=== PATIENT | male | born 1955 | race Caucasian/White ===

== ENCOUNTER → 2018-04-28 16:37 | Outpatient (CLI) | payer BC, SELFPAY ==
--- NOTE | 2018-04-28 | XR_ITS ---
EXAM: XR cervical spine 5V HISTORY: Neck pain and shoulder pain ORDERING PHYSICIAN: Hair Parish PATIENT AGE: 62 years COMPARISON: None FINDINGS: There is normal alignment. There is degenerative disc disease at C3-C4, C4-C5, C5-C6, and C6-C7. Facet and uncovertebral hypertrophy is present with moderate left-sided foraminal narrowing at C3-C4, C4-C5 and C5-C6. Facet hypertrophic changes are present from C2 to C7 with prominent facet hypertrophic change on the right at C2-C3. No fracture or dislocation. No lytic or blastic change. IMPRESSION: Multilevel cervical spondylosis with degenerative disc disease along with facet and uncovertebral arthrosis with foraminal narrowing as described above
== END ==
PROVIDERS: PCP Internal Medicine; Visit Provider Internal Medicine
DX: M54.2 Cervicalgia (principal); M25.512 Pain in left shoulder
CPT/HCPCS: 72050

== ENCOUNTER → 2018-07-07 13:11 | Outpatient (POV) | payer BC, SELFPAY | PROVIDERS: PCP Internal Medicine; Visit Provider Specialist | DX: M79.602 Pain in left arm (principal); R20.2 Paresthesia of skin; R20.0 Anesthesia of skin | CPT/HCPCS: 95886; 95908 ==

== ENCOUNTER 2018-07-14 09:00 | Outpatient (CLI) | payer SELFPAY | END 2018-07-14 11:11 | disposition home or self-care (01) | LOC: UTC.OUT 09:01 | PROVIDERS: PCP Internal Medicine; Visit Provider Nurse Practitioner Family | DX: Z02.4 Encounter for examination for driving license (principal) ==

== ENCOUNTER → 2019-05-19 07:16 | Outpatient (CLI) | payer BC, SELFPAY ==
[2019-05-19 08:13] LABS: Basophils # 0.1 K/mm3 (0-0.2); Eosinophils # 0.6 K/mm3 (0.0-0.4); Eosinophils % 5.8 % (0.1-12.0); Hematocrit 47.7 % (42.0-52.0); Hemoglobin 14.8 g/dL (14.1-18.0); Lymphocytes # 2.1 K/mm3 (0.7-4.5); Lymphocytes % 20.8 % (10-50); Mean Corpuscular Hemoglobin 30.6 pg (27.0-31.2); Mean Corpuscular Volume 98.4 fl (80-94); Mean Platelet Volume 9.4 fl (7.4-10.4); Monocytes % 9.6 % (1.7-9.3); Neutrophils # 6.3 K/mm3 (1.8-7.8); Neutrophils % 62.7 % (37.0-80.0); Platelet Count 322 K/mm3 (142-424); Red Blood Count 4.85 M/mm3 (4.60-6.20); Red Cell Distribution Width 13.5 % (11.5-17.5)
[2019-05-19 09:32] LABS: Alanine Aminotransferase 27 U/L (12-78); Albumin Level 3.9 gm/dL (3.4-5.0); Alkaline Phosphatase 69 U/L (46-116); Anion Gap 13.5 mEq/L (5-15); Aspartate Amino Transferase 18 U/L (15-37); Bilirubin,Total 0.4 mg/dL (0.2-1.0); Blood Urea Nitrogen 20 mg/dL (7-18); Calcium 9.7 mg/dL (8.5-10.1); Carbon Dioxide 28 mmol/L (21.0-32.0); Chloride 103 mmol/L (98-107); Chol/HDL Ratio 4.8 (1-3.5); Cholesterol 171 mg/dL (140-200); Estimated Glomerular Filt Rate 76 ml/min (>60); GFR (African American) 92 ML/MIN (>60); Globulin 3.9 gm/dl (1.3-3.2); Glucose 101 mg/dL (74-106); HDL Cholesterol 36 mg/dL (27-67); LDL Cholesterol 118 mg/dL (0-130); Potassium 4.5 mmoL/L (3.5-5.1); Prostate Specific Ag, Diagnost 0.79 ng/mL (0.0-4.0); Sodium 140 mmol/L (136-145); Total Protein,Serum 7.8 gm/dL (6.4-8.2); Triglycerides 85 mg/dL (30-200); VLDL Cholesterol 17 mg/dL (0-40)
== END ==
PROVIDERS: Visit Provider Internal Medicine
DX: I10 Essential (primary) hypertension (principal); E78.5 Hyperlipidemia, unspecified; M54.5 Low back pain; R39.12 Poor urinary stream
CPT/HCPCS: 36415; 80053; 80061; 84153; 85025

== ENCOUNTER → 2020-04-11 11:35 | Outpatient (CLI) | payer BC, SELFPAY ==
--- NOTE | 2020-04-11 11:49 | ECG_ITS ---
APPROVED REPORT Exam: Resting ECG HR:54 bpm ECG Measurements Heart Rate 54 AXES MT 190 P 52 QRSd 120 QRS -31 QT 442 T -5 QTc 419 <Conclusion> Sinus bradycardia Left axis deviation Right bundle branch block Abnormal ECG Electronically signed by : Hair Parish, 04/11/2020 12:06:55
== END ==
PROVIDERS: PCP Internal Medicine; Visit Provider Internal Medicine
DX: R07.89 Other chest pain (principal); I10 Essential (primary) hypertension
CPT/HCPCS: 93005

== ENCOUNTER → 2020-04-12 08:19 | Outpatient (CLI) | payer BC, SELFPAY ==
[2020-04-12 08:52] LABS: Basophils # 0.1 K/mm3 (0-0.2); Basophils % 1.1 % (0.1-2.0); Eosinophils # 0.8 K/mm3 (0.0-0.4); Eosinophils % 7.4 % (0.1-12.0); Hemoglobin 15.2 g/dL (14.1-18.0); Lymphocytes # 2.2 K/mm3 (0.7-4.5); Lymphocytes % 21.5 % (10-50); Mean Corpuscular HGB Conc 34.6 g/dL (31.8-35.4); Mean Corpuscular Hemoglobin 32.7 pg (27.0-31.2); Mean Corpuscular Volume 94.4 fl (80-94); Mean Platelet Volume 8.8 fl (7.4-10.4); Monocytes # 0.9 K/mm3 (0.1-1.0); Monocytes % 8.5 % (1.7-9.3); Neutrophils # 6.3 K/mm3 (1.8-7.8); Neutrophils % 61.5 % (37.0-80.0); Platelet Count 327 K/mm3 (142-424); Red Blood Count 4.66 M/mm3 (4.60-6.20); Red Cell Distribution Width 12.7 % (11.5-17.5); White Blood Count 10.2 K/mm3 (4.8-10.8)
[2020-04-12 10:13] LABS: Alanine Aminotransferase 30 U/L (12-78); Albumin Level 4.3 g/dl (3.5-5.0); Albumin/Globulin Ratio 1.3 (1.1-1.8); Alkaline Phosphatase 56 U/L (38-126); Anion Gap 13.3 mEq/L (5-15); Aspartate Amino Transferase 35 U/L (17-59); Bilirubin,Total 0.6 mg/dl (0.2-1.3); Blood Urea Nitrogen 21 mg/dl (9-20); Calcium 9.8 mg/dl (8.4-10.2); Carbon Dioxide 32 mmol/L (22.0-30.0); Chloride 98 mmol/L (98-107); Cholesterol 167 mg/dl (140-200); Estimated Glomerular Filt Rate 68 ml/min (>60); GFR (African American) 82 ML/MIN (>60); Globulin 3.2 g/dL (1.3-3.2); Glucose 99 mg/dl (74-100); HDL Cholesterol 28 mg/dl (40-60); Potassium 4.3 mmoL/L (3.5-5.1); Sodium 139 mmol/L (136-145); Total Protein,Serum 7.5 g/dl (6.3-8.2); Triglycerides 112 mg/dl (30-150); VLDL Cholesterol 22 mg/dL (0-40)
[2020-04-12 10:24] LABS: Direct LDL Cholesterol 115.23 mg/dL (100-129)
[2020-04-12 10:44] LABS: Prostate Specific Ag, Diagnost 0.795 ng/ml (0.0-4.0)
== END ==
PROVIDERS: Visit Provider Internal Medicine
DX: R07.9 Chest pain, unspecified (principal); I10 Essential (primary) hypertension; E78.5 Hyperlipidemia, unspecified; N40.1 Benign prostatic hyperplasia with lower urinary tract symptoms
CPT/HCPCS: 36415; 80053; 80061; 84153; 85025

== ENCOUNTER → 2020-04-21 11:39 | Outpatient (CLI) | payer BC, SELFPAY ==
--- NOTE | 2020-04-21 | CA_ITS ---
APPROVED REPORT Exam: Pharmacologic Technologist: Adia More, Ht: 6 ft 1 in Wt: 285 lbs BSA: 2.50 m2 HR: 58 bpm BP: 145/75 mmHg Rhythm: NSR,RBBB Medical History Medical History: HTN Medications: Hydrochlorothiazide,,,,, EnALAPRIL,,,,, Diclofenac,,,,, AmlodiNPINE,,,,, Omepazole,,,,, Cardiac Risk Factors: HTN Stress Test Details Test: LEXISCAN HR Resting HR: 81 bpm Max Heart Rate (APMHR): 157 bpm Max HR Achieved: 94 bpm Target HR (85% APMHR): 133 bpm % of APMHR: 59 Recovery HR: 80 bpm BP Resting BP: 154.0/82.0 mmHg Max BP: 154.0/82.0 mmHg Recovery BP: 129.0/74.0 mmHg ECG Resting ECG: NSR,RBBB Clinical Exercise duration: 04:00 min Highest Stage Achieved: Exercise capacity: 1.0 METs Stress ECG Conclusion SWITCHED FROM EXERCISE DUE TO INADEQUATE HEART RATE RESPONSE WITH EXERCISE. DURING INFUSION PATIENT HAD MILD SOA AND MILD MALAISE. NO CHEST PAIN. NO ARRHYTHMIAS/ECTOPY. 1MM DOWNSLOPING ST DEPRESSION INFERIORLY AND LATERALLY. 0.5MM J POINT ELEVATION IN LEAD III. EKG CHANGES CONCERNING FOR ISCHEMIA. MYOVIEW IMAGES REPORTED SEPARATELY. Electronically signed by : Korey Gilliam, 04/21/2020 15:15:53
--- NOTE | 2020-04-21 11:43 | NM_ITS ---
APPROVED REPORT Exam: Nuclear Stress Test Indication: chest pain..short of breath Patient Location: Outpatient Stress Tech: Kiki Sandoval NM Tech:REMA Curtis RT(R)(N) Ht: 6 ft 3 in Wt: 285 lbs HR: 58 bpm BP: 144/75 mmHg BSA: 2.55 m2 BMI: 35.6 History: chest pain..short of breath Procedure: Patient received a 0.4 mg of intravenous Lexiscan, resting heart rate 58 bpm, resting blood pressure 144/75 mmHg, with Lexiscan maximum heart rate achived was 92 bpm which is 85 % of the maximum predicted heart rate and blood pressure was 127/73 mmHg. With Lexiscan, patient denied any complaint of chest pain. Electrocardiogram Resting electrocardiogram shows sinus rhythm right bundle branch block, with Lexiscan there is 1.5 mm horizontal to downsloping ST segment depression noted in multiple leads. The EKG portion of the Lexiscan Myoview is markedly positive for ischemia. Cardiac Stress and Resting SPECT Images: Cardiac Stress and Resting SPECT images were obtained using technetium 99m Myoview 32.9 mCi stress and 10.16 mCi at rest. Gated SPECT for the analysis of segmental wall motion and calculation of the ejection fraction also done. Cardiac stress and resting SPECT images show a fixed defect involving the posterolateral and inferolateral wall with decreased contractility and the gated SPECT is likely secondary to myocardial scarring with no significant usman-infarct ischemia seen. Computer derived ejection fraction is 52% with moderate inferolateral and posterolateral wall hypokinesis. There is no transient ischemic dilatation of the left ventricle seen. Right ventricle is mildly enlarged with normal contractility. Conclusion: 1. The EKG portion of the Lexiscan Myoview is markedly positive for ischemia. 2. Scintigraphic evidence of myocardial scarring involving the inferolateral and posterolateral wall, without significant usman-infarct ischemia, computer derived ejection fraction 52% with segmental wall motion abnormalities described above, there is no transient ischemic dilatation of the left ventricle seen. Right ventricle is mildly enlarged with normal contractility. 3. Abnormal Lexiscan Myoview studies. Electronically signed by : Korey Gilliam, 04/21/2020 15:14:46
--- NOTE | 2020-04-21 13:47 | HMH.ITSHM ---
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 [] enaiapril amlodipine diclofenac hctz omeprazole
== END ==
PROVIDERS: PCP Internal Medicine; Visit Provider Internal Medicine
DX: R07.9 Chest pain, unspecified (principal); R06.02 Shortness of breath
CPT/HCPCS: 78452; 93017; A9502; J2785

== ENCOUNTER 2020-05-03 08:23 | Day surgery (SDC) | payer BC, SELFPAY ==
[2020-05-03] VITALS (23 sets, daily range): BP systolic 117–172; BP diastolic 50–93; PULSE 48–86; RESP 15–18; TEMP 36.4–36.9; O2SAT 96–100; BMI 37.1
--- NOTE | 2020-05-03 | IR_ITS ---
APPROVED REPORT Patient Location: Outpatient [facility] Registration Specialist: REMA Cid RT (R) PROCEDURES Left heart catheterization Left ventriculogram Selective coronary angiogram Attempted angioplasty to the proximal dominant circumflex artery INDICATION Angina pectoris class III, Coronary artery disease, High risk abnormal Myoview Informed consent was obtained prior to the procedure. COMPLICATIONS none Estimated Blood Loss: less than 10 mls TECHNIQUE One percent lidocaine used to anesthetize the right anterior aspect of the wrist. The right radial artery was accessed via the Seldinger technique. A 6 [place] sheath was placed in the right radial artery. 2.5 mg of verapamil, 800 mcg of nitroglycerin, 1mg Lidocaine and 5000 U Heparin were given through the arterial sheath. The trap catheter was also used to perform left heart catheterization, left ventriculogram and selective coronary angiogram. At the end of the procedure therapeutic heparin was administered giving a therapeutic ACT. And I Cori left guide catheter was placed in the left main artery and a Choice PT extra-support wire was placed down both the LAD and the circumflex artery. A 3 mm x 12 mm balloon could not be advanced therefore a 2 mm x 15 mm balloon was attempted to be advanced but also unsuccessful. At this point a guide liner was placed into the left main artery and proximal circumflex artery where a 1.5 x 8 mm noncompliant balloon was attempted to be advanced into the circumflex artery. This also would not advance. At this point it was decided patient should proceed with coronary bypass surgery rather than ongoing intervention and taking a chance of creating a complication. At this point the apparatus was removed the sheath was removed and hemostasis was achieved using TR banding patient transferred to the postop holding her in stable condition. The circumflex artery had TIBURCIO II flow down the vessel before and after the procedure.. ANGIOGRAPHIC RESULTS The left main artery Normal The left anterior descending artery Has an ostial 60 to 70% stenosis followed by a proximal 70 to 80% stenosis The circumflex artery Is a large dominant vessel and has a proximal calcified 80% followed by a concentric 95% stenosis The right coronary artery Vestigial normal The ALANIZ ventriculogram reveals Normal 60% The left ventricular end-diastolic pressure 10 mmHg IMPRESSION Critical disease in the proximal dominant circumflex artery with severe disease in the ostial proximal LAD as described above Inability to pass an angioplasty balloon beyond the critically stenosed circumflex artery Normal ejection fraction Normal left ventricular end-diastolic pressure PLAN 1. Patient will be transferred to [facility] today and be evaluated for possible coronary bypass surgery. Already spoke to the surgeon who has agreed to accept the patient in transfer today 2. Ongoing risk factor modification Electronically signed by : Johnnie Torres, 05/03/2020 11:28:54
[2020-05-03 09:06] LABS: Basophils # 0.1 K/mm3 (0-0.2); Basophils % 1.4 % (0.1-2.0); Eosinophils # 0.9 K/mm3 (0.0-0.4); Eosinophils % 8.7 % (0.1-12.0); Hematocrit 45.6 % (42.0-52.0); Hemoglobin 15.8 g/dL (14.1-18.0); Lymphocytes % 19.8 % (10-50); Mean Corpuscular HGB Conc 34.5 g/dL (31.8-35.4); Mean Corpuscular Hemoglobin 32.8 pg (27.0-31.2); Mean Corpuscular Volume 94.9 fl (80-94); Mean Platelet Volume 7.7 fl (7.4-10.4); Monocytes % 9.4 % (1.7-9.3); Neutrophils # 6.2 K/mm3 (1.8-7.8); Neutrophils % 60.6 % (37.0-80.0); Platelet Count 352 K/mm3 (142-424); Red Blood Count 4.81 M/mm3 (4.60-6.20); Red Cell Distribution Width 12.9 % (11.5-17.5); White Blood Count 10.2 K/mm3 (4.8-10.8)
[2020-05-03 09:11] LABS: Chloride 101 mmol/L (98-107); Potassium 3.7 mmoL/L (3.5-5.1); Sodium 139 mmol/L (136-145)
[2020-05-03 09:14] LABS: Blood Urea Nitrogen 20 mg/dl (9-20); Creatinine Clearance Estimated 144 mL/min (50-200); Estimated Glomerular Filt Rate 75 ml/min (>60); GFR (African American) 91 ML/MIN (>60)
[2020-05-03 09:15] LABS: Anion Gap 12.7 mEq/L (5-15); Calcium 9.8 mg/dl (8.4-10.2); Carbon Dioxide 29 mmol/L (22.0-30.0); Glucose 113 mg/dl (74-100)
[2020-05-03 09:30] LABS: Coronavirus 19 IgG Antibody Negative (Negative); Coronavirus 19 IgM Antibody Negative (Negative)
[2020-05-03 13:43] LABS: CATHL Activated Clotting Time > 400 SEC (74-125)
--- NOTE | 2020-05-03 14:50 | SUR.PHASEII ---
PATIENT TRANSFERED TO FLOOR OUTPT, TO AWAIT BED AVAILABILITY AT FOR CABG
--- NOTE | 2020-05-03 17:39 | PC.NURSE ---
marvel from [facility] called for an update set of vitals. states they could have a bed late tonight or early tomorrow.
--- NOTE | 2020-05-03 17:41 | PC.NURSE ---
pt has done well since arrival to floor. no c/o chest pain thus far. pt has ambulated multiple times to the bathroom without issue. lungs remain cta. dressing to right wrist is cdi. nrs/jeffry on tele. still awaiting bed at . vss. will cont. to monitor.
--- NOTE | 2020-05-03 22:42 | PC.NURSE ---
He is A&Ox4. He denies pain, nausea, vomiting, and diarrhea. He is s/p heart cath with a DSG on the right radial site that is C/D/I. He was educated to notify staff immediately if he feels any pulsating or throbbing at the site or if he notices any bruising or bleeding. Also educated not to put pressure on his RUE. He verbalized understanding.
[2020-05-04] VITALS: PULSE 50
--- NOTE | 2020-05-04 03:23 | PC.NURSE ---
He has been resting in bed. Bradycardia on telemetry. Continues on RA. Awakens periodically to use the bathroom. Has denied pain each time while awake.
[2020-05-04 03:47] VITALS: BP 121/62; PULSE 52; TEMP 36.8; O2SAT 98
[2020-05-04 04:00] VITALS: PULSE 50
[2020-05-04 05:25] VITALS: BMI 36.8
--- NOTE | 2020-05-04 06:08 | PC.NURSE ---
Still awaiting bed at .
[2020-05-04 08:00] VITALS: BP 142/71; PULSE 50; PULSE 54; RESP 17; TEMP 36.8; O2SAT 99
--- NOTE | 2020-05-04 10:08 | HMH.PNCARD ---
Subjective Date: 05/04/20 Time: 09:35 Principal diagnosis: CAD Interval history: This is a 64-year-old gentleman who came in for an outpatient left cardiac catheterization. The patient was found to have critical disease in the proximal dominant circumflex artery with severe disease in the ostial proximal LAD. The patient is awaiting transfer to the [facility] to be evaluated for possible coronary artery bypass grafting. The patient has already been accepted by Dr. Miranda but [facility] is on a level 5 diversion and we are currently awaiting a bed. The patient denies any chest pain or pressure this morning. He does complain of some shortness of breath with exertion. This does improve with rest. He denies any edema, fever, chills, nausea, vomiting, diarrhea, PND or orthopnea. The patient sister is a little upset today that he was not transferred overnight like he was supposed to be. However [facility] was on level 5 diversion and that is why the transfer did not occur. She states that she is going to look for other options for transfer for coronary artery bypass grafting just in case he is not transferred today. Exam Vital signs and Labs for Last 24 Hours: Temp Pulse Resp BP Pulse Ox 98.2 F 54 L 17 142/71 H 99 05/04/20 08:00 05/04/20 08:00 05/04/20 08:00 05/04/20 08:00 05/04/20 08:00 Laboratory Results - last 24 hr 05/03/20 10:54: Activated Clotting Time > 400 H* I & O for Last 24 hours: Intake & Output 05/01/20 05/02/20 05/03/20 05/04/20 23:59 23:59 23:59 23:59 Intake Total Balance Weight 297 lb 296 lb 1 oz Narrative: Telemetry strip is sinus rhythm with a rate of 63. - Constitutional no acute distress, obese - *Routine HEENT Exam Head: Present: normocephalic, atraumatic Eye: Present: EOMI, PERRL ENT: Present: mucous membranes moist - *Routine Neck Exam Present: supple, full ROM, normal carotid upstroke. Absent: JVD, carotid bruit, lymphadenopathy - *Routine Respiratory Exam Present: CTA bilaterally - *Routine Cardiovascular Exam Present: RRR, Normal S1, Normal S2. Absent: murmur - *Routine Abdominal Exam Present: soft, normoactive bowel sounds. Absent: tenderness, distended - *Routine Extremities Exam Present: full ROM, pulses intact, normal capillary refill. Absent: cyanosis, clubbing, edema - *Routine Skin Exam Present: intact, warm. Absent: erythema, rash - *Routine Neurological Exam Present: alert, oriented X3, CN II-XII intact. Absent: sensory deficit, motor deficit Progress Note: A&P (1) Coronary artery disease Status: Chronic Current Visit: Yes (2) HLD (hyperlipidemia) Status: Chronic Current Visit: No (3) HTN (hypertension) Status: Chronic Current Visit: No (4) Dyspnea Status: Acute Current Visit: No Assessment and Plan for All Diagnoses:: Plan: 1. Patient came in for an outpatient left cardiac catheterization and was found to have critical coronary artery disease that required coronary artery bypass grafting. The patient is currently awaiting transfer to [facility] for coronary artery bypass grafting. [facility] is on a level 2 5 diversion. However, the patient has been accepted by Dr. Miranda and he is #1 on the transfer list and is supposed to be transferred to [facility] today. 2. The patient denies any chest pain or pressure this morning. 3. His blood pressure is acceptable but none of his home medications have been given today. We will get these restarted at this time. 4. His LDL goal is less than 55. 5. The patient is able to eat breakfast today. 6. As mentioned in the HPI the patient sister is going to start researching other cardiothoracic surgeons for possible transfer if he is not transferred to [facility] today. 7. Further recommendations will be made pending the patient's response to treatment. Thank you for the opportunity to
--- NOTE | 2020-05-04 10:32 | HMH.PHAVTE ---
[facility] Pharmacy VTE Monitoring - Patient Demographics Admission date: 05/04/20 Report Date: 05/04/20 Time: 10:32 Allergies/Adverse Reactions: Patient Allergies adhesive Allergy (Unknown, Verified 04/25/20 10:46) Rash adhesive tape Allergy (Unknown, Verified 04/25/20 10:46) Rash Height: 1.91 m Weight: 134.292 kg Patient Problems: Current Active Problems Coronary artery disease (Chronic) - VTE Risk Labs: VTE Related Lab Results Hgb 15.8 g/dL (14.1-18.0) 05/03/20 09:00 Hct 45.6 % (42.0-52.0) 05/03/20 09:00 Plt Count 352 K/mm3 (142-424) 05/03/20 09:00 BUN 20 mg/dl (9-20) 05/03/20 09:00 Creatinine 1.00 mg/dl (0.66-1.25) 05/03/20 09:00 Estimated Creat Clear 144 mL/min (50-200) 05/03/20 09:00 Clinical Trial Participant: No - Prophylaxis VTE Prophylaxis Ordered?: Yes Types of VTE Prophylaxis: TEDS Knee High
--- NOTE | 2020-05-04 10:57 | CA_ITS ---
APPROVED REPORT Health Care Attorney: Rufina Soni RVT Laterality: Bilateral Study Quality: Good Indications: CAD, PRE-OP FOR CABG Risk Factors Hypertension: Hyperlipidemia Doppler Spectral Velocity Analysis ECA (R) 92.30/7.80 cm/s ECA (L) 85.80/7.70 cm/s dICA (R) 72.50/24.30 cm/s dICA (L) 69.90/23.00 cm/s Fabián (R) 79.90/25.60 cm/s Fabián (L) 68.30/23.50 cm/s pICA (R) 73.40/20.80 cm/s pICA (L) 63.60/18.10 cm/s dCCA (R) 79.70/20.00 cm/s dCCA (L) 80.00/17.40 cm/s pCCA (R) 83.00/15.40 cm/s pCCA (L) 75.50/13.80 cm/s Vert (R) 48.40/16.00 cm/s Vert (L) 43.60/11.50 cm/s ICA/CCA 1.00 ICA/CCA 0.87 Findings Study suggests 20-49% stenosis (lower end of scale) of the right internal cartoid artery. Study suggests less than 20% stenosis of the left internal cartoid artery. Antegrade flow seen bilateral vertebral arteries. Conclusion Study suggests 20-49% stenosis (lower end of scale) of the right internal cartoid artery. Study suggests less than 20% stenosis of the left internal cartoid artery. Antegrade flow seen bilateral vertebral arteries. Electronically signed by : Wolfgang Fulton MD 05/04/2020 17:18:36
--- NOTE | 2020-05-04 12:57 | PC.NURSE ---
pt back to floor from tests
--- NOTE | 2020-05-04 13:11 | PC.NURSE ---
report called to danny at [facility]
== END 2020-05-04 15:00 | disposition short-term general hospital (02) ==
LOC: CATHLAB 08:26 → 2ND 16:35
PROVIDERS: PCP Internal Medicine; Visit Provider Internal Medicine
DX: I25.118 Atherosclerotic heart disease of native coronary artery with other forms of angina pectoris (principal); I10 Essential (primary) hypertension; E78.5 Hyperlipidemia, unspecified; Z82.49 Family history of ischemic heart disease and other diseases of the circulatory system; Z79.899 Other long term (current) drug therapy
CPT/HCPCS: 80048; 85025; 85347; 86328; 93458; 93880; 94060; 94727; 94729; 99152; 99153; C1725; C1769; J1644; Q9967

== ENCOUNTER → 2020-05-16 11:35 | Outpatient (CLI) | payer BC, SELFPAY ==
[2020-05-16 12:25] LABS: Basophils # 0.1 K/mm3 (0-0.2); Basophils % 0.4 % (0.1-2.0); Eosinophils # 0.3 K/mm3 (0.0-0.4); Eosinophils % 1.4 % (0.1-12.0); Hematocrit 32.6 % (42.0-52.0); Hemoglobin 10.3 g/dL (14.1-18.0); Lymphocytes % 9.3 % (10-50); Mean Corpuscular HGB Conc 31.7 g/dL (31.8-35.4); Mean Corpuscular Hemoglobin 31.7 pg (27.0-31.2); Mean Corpuscular Volume 100.1 fl (80-94); Mean Platelet Volume 9.3 fl (7.4-10.4); Monocytes # 2.2 K/mm3 (0.1-1.0); Neutrophils # 17.4 K/mm3 (1.8-7.8); Neutrophils % 78.9 % (37.0-80.0); Platelet Count 405 K/mm3 (142-424); Red Blood Count 3.26 M/mm3 (4.60-6.20); Red Cell Distribution Width 14.6 % (11.5-17.5)
[2020-05-16 12:28] LABS: MANUAL DIFFERENTIAL MANUAL DIFFERENTIAL (MANUAL DIFF)
[2020-05-16 14:14] LABS: Chloride 100 mmol/L (98-107); Potassium 4.2 mmoL/L (3.5-5.1); Sodium 134 mmol/L (136-145)
[2020-05-16 14:16] LABS: Alanine Aminotransferase 86 U/L (12-78); Aspartate Amino Transferase 49 U/L (17-59); Blood Urea Nitrogen 15 mg/dl (9-20); Estimated Glomerular Filt Rate 75 ml/min (>60); GFR (African American) 91 ML/MIN (>60)
[2020-05-16 14:17] LABS: Albumin Level 3.3 g/dl (3.5-5.0); Albumin/Globulin Ratio 0.9 (1.1-1.8); Alkaline Phosphatase 55 U/L (38-126); Anion Gap 13.2 mEq/L (5-15); Bilirubin,Total 0.9 mg/dl (0.2-1.3); Calcium 8.6 mg/dl (8.4-10.2); Carbon Dioxide 25 mmol/L (22.0-30.0); Globulin 3.5 g/dL (1.3-3.2); Glucose 128 mg/dl (74-100); Total Protein,Serum 6.8 g/dl (6.3-8.2)
[2020-05-16 14:19] LABS: Anisocytosis 1+; Lymphocytes % 8 % (10-50); Macrocytosis 1+; Monocytes % 10 % (2-9); Neutrophils % 82 % (42-76); Platelet Estimate Normal; Total Cells Counted 100
== END ==
PROVIDERS: Visit Provider Physician Assistant Surgical
DX: I25.10 Atherosclerotic heart disease of native coronary artery without angina pectoris (principal)
CPT/HCPCS: 36415; 80053; 85007; 85025

== ENCOUNTER → 2020-06-27 13:17 | Outpatient (CLI) | payer BC, SELFPAY ==
[2020-06-27 13:44] LABS: Basophils # 0.1 K/mm3 (0-0.2); Basophils % 0.7 % (0.1-2.0); Eosinophils # 0.3 K/mm3 (0.0-0.4); Hematocrit 43.1 % (42.0-52.0); Hemoglobin 13.6 g/dL (14.1-18.0); Lymphocytes # 1.9 K/mm3 (0.7-4.5); Lymphocytes % 18.3 % (10-50); Mean Corpuscular HGB Conc 31.5 g/dL (31.8-35.4); Mean Corpuscular Hemoglobin 30.4 pg (27.0-31.2); Mean Corpuscular Volume 96.3 fl (80-94); Mean Platelet Volume 8.4 fl (7.4-10.4); Monocytes # 1.1 K/mm3 (0.1-1.0); Monocytes % 10.7 % (1.7-9.3); Neutrophils # 6.8 K/mm3 (1.8-7.8); Neutrophils % 67.3 % (37.0-80.0); Platelet Count 339 K/mm3 (142-424); Red Blood Count 4.48 M/mm3 (4.60-6.20); Red Cell Distribution Width 14.4 % (11.5-17.5); White Blood Count 10.2 K/mm3 (4.8-10.8)
== END ==
PROVIDERS: Visit Provider Thoracic Surgery (Cardiothoracic Vascular Surgery)
DX: D72.829 Elevated white blood cell count, unspecified (principal)
CPT/HCPCS: 36415; 85025

== ENCOUNTER 2020-07-05 13:45 | Outpatient (RCR) | payer BC, SELFPAY | END 2020-08-02 15:19 | disposition home or self-care (01) | LOC: PT 13:45 | PROVIDERS: Visit Provider Thoracic Surgery (Cardiothoracic Vascular Surgery) | DX: Z95.1 Presence of aortocoronary bypass graft (principal) | CPT/HCPCS: 93798 ==

== ENCOUNTER → 2020-11-08 13:25 | Outpatient (CLI) | payer BC, SELFPAY ==
--- NOTE | 2020-11-08 13:26 | CA_ITS ---
APPROVED REPORT EXAM: Comprehensive 2D, Doppler, and color-flow Echocardiogram Table Attendant: Ntaa Collado CRT Ht: 6 ft 3 in Wt: 292lbs BSA: 2.58 BP: 148/79 mmHg Indications: Shortness of Breath, Obesity, Hyperlipidemia, Hypertension/HDD 2D Dimensions LVOT 2.28 cm (M/F) 1.5-2.5 LA Volume 45.10 mL LA Volume Index 17.50 mL/m2 (M/F) 16-34 M-Mode Dimensions RVDd 4.23 cm (0.9-2.6) LA Diam 5.72 cm (1.9-4.0) LVDd 5.74 cm (3.5-5.7) Ao Diam 4.23 cm (2.0-3.7) LVDs 4.32 cm (3.5-5.7) IVSd 1.77 cm (0.6-1.1) PWd 0.76 cm (0.6-1.1) EF (Teich) 48.30% FS 24.70% EDV (Teich) 162.60 mL ESV (Teich) 84.00 mL LV Diastology E Decel Time 377.00 (160-240 msec) E/A Ratio 0.87 MED E' 5.70 (< 7 cm/sec) MED A' 7.80 cm/s E'/MED E' Ratio 12.74 (>14) LAT E' 8.40 (<10 cm/sec) LAT A' 12.60 cm/s E/LAT E' Ratio 8.64 (>14) Aortic Valve AO Peak GR. 8.60 mmHg Mitral Valve MV A Velocity 84.00 (40-130 cm/s) E/A Ratio 0.87 MV Decel. Time 377.00 (160-240 ms) Pulmonary Valve PV Peak Velocity 118.00 (50-150 cm/s) Tricuspid Valve TR P. Velocity 247.00 cm/s RAP Estimate 10.00 mmHg RVSP 34.50 mmHg Left Ventricle Left atrium is mildly enlarged, left ventricle is normal size, mild concentric left ventricular hypertrophy, visually estimated ejection fraction 55% with no regional wall motion abnormality, grade 1 diastolic dysfunction seen without tissue Doppler evidence of raise left atrial pressure. Right Ventricle Right atrium and right ventricle mildly enlarged with normal contractility. Aortic Valve Aortic valve is minimally thickened and calcified without aortic stenosis or aortic insufficiency. Mitral Valve Mitral valve is grossly normal, there is mild mitral regurgitation. Tricuspid Valve Tricuspid grossly normal, there is mild tricuspid regurgitation, calculated right ventricular systolic pressure 34 mmHg assuming right atrial pressure of 10 mmHg. Pulmonic Valve Pulmonic valve is poorly visualized. Great Vessels Aortic root is normal size. Pericardium No significant pericardial effusion noted. Conclusion 1. Biatrial enlargement, normal left ventricular size, mild concentric left ventricular hypertrophy, visually estimated ejection fraction 55% with no regional wall motion abnormality, grade 1 diastolic dysfunction seen without tissue Doppler evidence of raise left atrial pressure. 2. Mildly enlarged right ventricle with normal contractility. 3. Mild mitral and tricuspid regurgitation, calculated right ventricular systolic pressure is 34 mmHg assuming right atrial pressure of 10 mmHg. 4. No significant pericardial effusion noted. Electronically signed by : Korey Gilliam, 11/08/2020 16:24:31
== END ==
PROVIDERS: PCP Internal Medicine; Visit Provider Physician Assistant
DX: I25.810 Atherosclerosis of coronary artery bypass graft(s) without angina pectoris (principal); R00.1 Bradycardia, unspecified; E78.2 Mixed hyperlipidemia; I10 Essential (primary) hypertension; Z95.1 Presence of aortocoronary bypass graft
CPT/HCPCS: 93306

== ENCOUNTER → 2020-11-21 07:08 | Outpatient (CLI) | payer BC, SELFPAY ==
[2020-11-21 08:52] LABS: Basophils # 0.1 K/mm3 (0-0.2); Eosinophils # 0.8 K/mm3 (0.0-0.4); Hematocrit 42.5 % (42.0-52.0); Hemoglobin 14.1 g/dL (14.1-18.0); Lymphocytes # 2.4 K/mm3 (0.7-4.5); Lymphocytes % 22.3 % (10-50); Mean Corpuscular HGB Conc 33.2 g/dL (31.8-35.4); Mean Corpuscular Hemoglobin 30.6 pg (27.0-31.2); Mean Corpuscular Volume 92.1 fl (80-94); Mean Platelet Volume 8.7 fl (7.4-10.4); Monocytes # 0.8 K/mm3 (0.1-1.0); Monocytes % 7.7 % (1.7-9.3); Neutrophils # 6.5 K/mm3 (1.8-7.8); Platelet Count 296 K/mm3 (142-424); Red Blood Count 4.61 M/mm3 (4.60-6.20); Red Cell Distribution Width 14.7 % (11.5-17.5); White Blood Count 10.6 K/mm3 (4.8-10.8)
[2020-11-21 09:17] LABS: Chloride 106 mmol/L (98-107)
[2020-11-21 09:18] LABS: Potassium 4.5 mmoL/L (3.5-5.1); Sodium 139 mmol/L (136-145)
[2020-11-21 09:20] LABS: Alanine Aminotransferase 38 U/L (12-78); Alkaline Phosphatase 97 U/L (38-126); Anion Gap 11.5 mEq/L (5-15); Aspartate Amino Transferase 40 U/L (17-59); Bilirubin,Indirect 0.4 mg/dL (0.0-0.9); Bilirubin,Total 0.4 mg/dl (0.2-1.3); Bilirubin,Unconjugated 0.4 mg/dL (0.0-1.1); Blood Urea Nitrogen 16 mg/dl (9-20); Carbon Dioxide 26 mmol/L (22.0-30.0); Cholesterol 109 mg/dl (140-200); Estimated Glomerular Filt Rate 75 ml/min (>60); GFR (African American) 91 ML/MIN (>60); Triglycerides 65 mg/dl (30-150); VLDL Cholesterol 13 mg/dL (0-40)
[2020-11-21 09:21] LABS: Albumin Level 4.3 g/dl (3.5-5.0); Calcium 9.6 mg/dl (8.4-10.2); Chol/HDL Ratio 3.4 (1-3.5); Glucose 95 mg/dl (74-100); HDL Cholesterol 32 mg/dl (40-60); Total Protein,Serum 7.2 g/dl (6.3-8.2)
[2020-11-21 09:33] LABS: Direct LDL Cholesterol 55.06 mg/dL (100-129)
== END ==
PROVIDERS: Visit Provider Physician Assistant
DX: I25.810 Atherosclerosis of coronary artery bypass graft(s) without angina pectoris (principal); R00.1 Bradycardia, unspecified; E78.2 Mixed hyperlipidemia; I10 Essential (primary) hypertension; Z95.1 Presence of aortocoronary bypass graft
CPT/HCPCS: 80048; 80061; 80076; 85025

== ENCOUNTER → 2020-12-27 09:20 | Outpatient (CLI) | payer BC, SELFPAY ==
[2020-12-27 10:09] LABS: Chloride 103 mmol/L (98-107)
[2020-12-27 10:10] LABS: Potassium 4.9 mmoL/L (3.5-5.1); Sodium 139 mmol/L (136-145)
[2020-12-27 10:13] LABS: Anion Gap 12.9 mEq/L (5-15); Blood Urea Nitrogen 15 mg/dl (9-20); Calcium 9.6 mg/dl (8.4-10.2); Carbon Dioxide 28 mmol/L (22.0-30.0); Estimated Glomerular Filt Rate 67 ml/min (>60); GFR (African American) 82 ML/MIN (>60); Glucose 85 mg/dl (74-100)
== END ==
PROVIDERS: Visit Provider Physician Assistant
DX: I25.810 Atherosclerosis of coronary artery bypass graft(s) without angina pectoris (principal); R00.1 Bradycardia, unspecified; R94.31 Abnormal electrocardiogram [ECG] [EKG]; I10 Essential (primary) hypertension; E78.2 Mixed hyperlipidemia; Z95.1 Presence of aortocoronary bypass graft
CPT/HCPCS: 36415; 80048

== ENCOUNTER → 2021-07-25 14:56 | Outpatient (CLI) | payer BC, SELFPAY ==
--- NOTE | 2021-07-25 15:01 | MR_ITS ---
PROCEDURE INFORMATION: Exam: MR Lumbar Spine Without Contrast Exam date and time: 07/25/2021 3:01 PM Age: 65 years old Clinical indication: Low back pain; Additional info: Lumbago with sciatica. Lbp xyrs. RT leg numbess, pain, and tingling. No injury or trauma. No prior. TECHNIQUE: Imaging protocol: Multiplanar magnetic resonance images of the lumbar spine without intravenous contrast. COMPARISON: No relevant prior studies available. FINDINGS: Vertebrae: Left apex curvature centered at L3. Multilevel degenerative endplate changes are seen. These are worst at L2-L3 with some edema seen primarily to the right of midline. Posterior offset seen at L1-L2 and L2-L3 which is mild. Spinal cord: Normal signal. No cord compression. L1-L2: A large broad-based disc bulge is seen. Focal ligamental thickening is noted. Complete effacement of CSF is seen. A small amount of dorsal epidural fat remains. This constitutes a moderate to severe focal central canal stenosis. Facet arthropathy also noted. Mild left and moderate right L2-L3: A large broad-based disc bulge is seen. Focal ligamental thickening is noted. Complete effacement of CSF is seen. A small amount of dorsal epidural fat remains. This constitutes a moderate to severe focal central canal stenosis. Facet arthropathy also noted. Mild bilateral neural foraminal stenosis. L3-L4: Moderate broad-based disc bulge. Mild ligamental thickening. Moderate facet arthropathy. [id number] focal central canal stenosis. Mild bilateral neural foraminal stenosis. L4-L5: Moderate right asymmetric disc bulge. Significant effacement in the right ventral central canal. Moderate bilateral facet arthropathy. Moderate right asymmetric central canal stenosis. Moderate left and mild right neural foraminal stenosis. L5-S1: A moderate broad-based disc bulge. Superimposed moderate central protrusion. Disc material abuts transiting nerve roots. Mild facet arthropathy. Moderate left and mild right neural foraminal stenosis. Soft tissues: Unremarkable. IMPRESSION: Moderate to severe multilevel degenerative spondylopathy. Moderate to severe focal central canal stenoses are seen at L1-L2 and L2-L3.
== END ==
PROVIDERS: PCP Internal Medicine; Visit Provider Internal Medicine
DX: M54.40 Lumbago with sciatica, unspecified side (principal)
CPT/HCPCS: 72148; 76376

== ENCOUNTER → 2021-09-18 12:48 | Outpatient (CLI) | payer BC, SELFPAY ==
--- NOTE | 2021-09-18 12:49 | CA_ITS ---
FINAL REPORT TECHNIQUE: Color Doppler, duplex Doppler and sarmiento scale sonography of the bilateral neck arterial vasculature was performed. Velocities were measured in the carotid arteries. Stenosis evaluation based on the validated velocity criteria. CLINICAL HISTORY: OMER,HTN,HLD FINDINGS: The peak systolic velocity of the right common carotid artery is 85 cm/s. The peak systolic velocity of the right internal carotid artery is 112 cm/s and end diastolic velocity 30 cm/s. A small amount of plaque is present. The right external carotid artery is patent. The right vertebral artery is patent with antegrade flow. Right ICA/CCA ratio: 1.33 The peak systolic velocity of the left common carotid artery is 101 cm/s. The peak systolic velocity of the left internal carotid artery is 86 cm/s and end diastolic velocity 25 cm/s. A small amount of plaque is present. The left external carotid artery is patent.The left vertebral artery is patent with antegrade flow. Left ICA/CCA ratio: 0.85 IMPRESSION: Less than 50% bilateral carotid stenoses. Bilateral patent vertebral arteries with antegrade flow. If indicated, CTA or MRA could further evaluate. Reviewed, Interpreted and Dictated by Stu Bustillo III, MD Transcribed by Jae Meyers Authenticated by Stu Bustillo III, MD on 09/18/2021 01:54:03 PM [facility]
== END ==
PROVIDERS: PCP Internal Medicine; Visit Provider Urology
DX: I65.23 Occlusion and stenosis of bilateral carotid arteries (principal)
CPT/HCPCS: 93880

== ENCOUNTER → 2021-10-06 13:11 | Outpatient (CLI) | payer BC, SELFPAY | PROVIDERS: Visit Provider Nurse Practitioner | DX: Z20.822 Contact with and (suspected) exposure to COVID-19 (principal) | CPT/HCPCS: C9803; U0003; U0005 ==

== ENCOUNTER → 2022-01-16 15:04 | Outpatient (CLI) | payer BC, SELFPAY ==
--- NOTE | 2022-01-16 15:11 | XR_ITS ---
FINAL REPORT CLINICAL HISTORY: LEFT KNEE PAIN. after lifting a bag of sacrete. FINDINGS: LEFT KNEE 3 views of the left knee were obtained. There is no acute fracture or dislocation. Visualized joint spaces are normally aligned. There is moderate degenerative change. There are meniscal calcifications. There is a chronic calcification adjacent to the lateral malleolus. There are postoperative changes in the medial lower leg. IMPRESSION: No acute bony abnormality. Reviewed, Interpreted and Dictated by Stu Bustillo III, MD Transcribed by Marianne Loera Authenticated and [facility]
== END ==
PROVIDERS: PCP Internal Medicine; Visit Provider Internal Medicine
DX: M25.561 Pain in right knee (principal)
CPT/HCPCS: 73562

== ENCOUNTER 2022-02-16 11:15 | Outpatient (RCR) | payer BC, SELFPAY | END 2022-02-16 12:15 | disposition home or self-care (01) | LOC: PT 11:15 | PROVIDERS: Visit Provider Orthopaedic Surgery | DX: M17.12 Unilateral primary osteoarthritis, left knee (principal) | CPT/HCPCS: 97760 ==

== ENCOUNTER 2022-02-21 16:32 | Outpatient (RCR) | payer BC, SELFPAY ==
--- NOTE | 2022-02-21 17:26 | HMH.PTOPEV ---
PT Outpatient Evaluation Rehab PT Outpatient Evaluation Start: 02/21/22 17:11 Freq: Status: Active Protocol: Document 02/21/22 17:12 TESSASONJA (Rec: 02/21/22 17:26 RAJI [id number]) Electronically Signed By Drew Chatterjee, PT 02/21/22 17:12 Outpatient Therapy Subjective History Subjective History This is the initial Physical Therapy evaluation for Cruz Asher. Pt is a 66 y/o male referred to PT for c/o L knee pain. 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 Pt c/o of pain in L knee, some burning around knee, and a ramya horse almost in posterior knee. Pt reports overall pain and dysfunction has decreased, but also states he had injection about a week ago . Pt reports he still has aching and pain at end of day from work. Pt did respond yes to feelings of knee giving out or locking up. Chief Complaint Pain,Swelling,Catches/Locks, Gives out/Unstable Symptom Type Ache,Throb,Sharp,Dull,Stabbing ,Burning Symptoms Relieved By Rest/Positioning,Ice,OTC Meds Symptoms Aggravated By Standing,Bending/Stooping, Physical Activity,Walking Prior Functional Limitations None Current Functional Limitations Housework,Squatting,Recreation Activity,Walking,Bending/ Stooping Symptom Description Intermittent Level of pain today (0-10) 2 Pain scale - at its best (0-10) 0 Pain scale - at its worst (0-10) 8 Hip/Knee Eval Gait Observation General Gait Pattern Observation No Deviations/Normal Palpation Tenderness left Knee Palpation Finding None/Normal Hip Palpation Findings None/Normal MMT Hip Strength Reason Not Measured WFL Knee Extension Strength Grade 4 Good Knee Flexion Strength Grade 4 Good ROM Hip ROM Reason Not Measured Within Functional Limits Knee ROM Reason Not Measured Within Functional Limits Special Tests Sciatic Nerve Tension Test Negative Left Knee Apley Compression Test Negative Left Knee Medial-Lateral Grind Test Negative Left Knee Anterior Yennifer Test Negative Left Knee Valgus Stress Test
== END 2022-02-21 16:35 | disposition home or self-care (01) ==
LOC: PT 16:32
PROVIDERS: PCP Internal Medicine; Visit Provider Orthopaedic Surgery
DX: M17.12 Unilateral primary osteoarthritis, left knee (principal)
CPT/HCPCS: 97110; 97163

== ENCOUNTER → 2022-06-20 09:53 | Outpatient (CLI) | payer BC, SELFPAY ==
[2022-06-20 10:16] LABS: Basophils # 0.1 K/mm3 (0-0.2); Basophils % 1.2 % (0.1-2.0); Eosinophils # 0.5 K/mm3 (0.0-0.4); Eosinophils % 5.5 % (0.1-12.0); Hematocrit 46.2 % (42.0-52.0); Hemoglobin 14.7 g/dL (14.1-18.0); Lymphocytes # 1.7 K/mm3 (0.7-4.5); Lymphocytes % 19.3 % (10-50); Mean Corpuscular HGB Conc 31.7 g/dL (31.8-35.4); Mean Corpuscular Hemoglobin 31.6 pg (27.0-31.2); Mean Corpuscular Volume 99.6 fl (80-94); Mean Platelet Volume 7.6 fl (7.4-10.4); Monocytes % 10.8 % (1.7-9.3); Neutrophils # 5.5 K/mm3 (1.8-7.8); Neutrophils % 63.2 % (37.0-80.0); Platelet Count 318 K/mm3 (142-424); Red Blood Count 4.64 M/mm3 (4.60-6.20); Red Cell Distribution Width 12.8 % (11.5-17.5); White Blood Count 8.8 K/mm3 (4.8-10.8)
[2022-06-20 10:57] LABS: Alanine Aminotransferase 39 U/L (12-78); Albumin Level 4.2 g/dl (3.5-5.0); Alkaline Phosphatase 86 U/L (38-126); Aspartate Amino Transferase 45 U/L (17-59); Bilirubin,Indirect 0.6 mg/dL (0.0-0.9); Bilirubin,Total 0.6 mg/dl (0.2-1.3); Bilirubin,Unconjugated 0.6 mg/dL (0.0-1.1); Blood Urea Nitrogen 22 mg/dl (9-20); Calcium 9.6 mg/dl (8.4-10.2); Carbon Dioxide 27 mmol/L (22.0-30.0); Chloride 100 mmol/L (98-107); Chol/HDL Ratio 3.9 (1-3.5); Cholesterol 104 mg/dl (140-200); Estimated Glomerular Filt Rate 55 ml/min (>60); GFR (African American) 67 ML/MIN (>60); Glucose 101 mg/dl (74-100); HDL Cholesterol 27 mg/dl (40-60); Sodium 139 mmol/L (136-145); Total Protein,Serum 7.2 g/dl (6.3-8.2); Triglycerides 75 mg/dl (30-150); VLDL Cholesterol 15 mg/dL (0-40)
[2022-06-20 11:08] LABS: Direct LDL Cholesterol 53.48 mg/dL (100-129)
== END ==
PROVIDERS: PCP Internal Medicine; Visit Provider Nurse Practitioner
DX: I25.810 Atherosclerosis of coronary artery bypass graft(s) without angina pectoris (principal); I10 Essential (primary) hypertension; E78.2 Mixed hyperlipidemia
CPT/HCPCS: 36415; 80048; 80061; 80076; 85025

== ENCOUNTER 2022-07-05 17:38 | Emergency (ER) | payer BC, SELFPAY ==
[2022-07-05 17:40] VITALS: BP 179/81; PULSE 85; RESP 18; TEMP 37.4; O2SAT 93; BMI 39.7
[2022-07-05 18:21] LABS: Coronavirus 19, PCR Not Detected (NotDetected); Influenza B, PCR Not Detected (NotDetected)
[2022-07-05 18:25] LABS: Chloride 99 mmol/L (98-107); Sodium 133 mmol/L (136-145)
[2022-07-05 18:26] LABS: Potassium 3.8 mmoL/L (3.5-5.1)
[2022-07-05 18:28] LABS: Alanine Aminotransferase 42 U/L (12-78); Alkaline Phosphatase 75 U/L (38-126); Amylase 79 U/L (30-110); Anion Gap 12.8 mEq/L (5-15); Aspartate Amino Transferase 57 U/L (17-59); Bilirubin,Total 0.5 mg/dl (0.2-1.3); Blood Urea Nitrogen 19 mg/dl (9-20); Calcium 9.4 mg/dl (8.4-10.2); Carbon Dioxide 25 mmol/L (22.0-30.0); Creatinine Clearance Estimated 125 mL/min (50-200); Estimated Glomerular Filt Rate 61 ml/min (>60); GFR (African American) 74 ML/MIN (>60); Glucose 183 mg/dl (74-100); Lipase 97 U/L (23-300)
[2022-07-05 18:29] LABS: Albumin Level 4.3 g/dl (3.5-5.0); Albumin/Globulin Ratio 1.3 (1.1-1.8); Globulin 3.4 g/dL (1.3-3.2); Total Protein,Serum 7.7 g/dl (6.3-8.2)
[2022-07-05 18:30] VITALS: BP 131/67; PULSE 76; O2SAT 94
[2022-07-05 18:31] LABS: Basophils # 0.1 K/mm3 (0-0.2); Basophils % 1.1 % (0.1-2.0); Eosinophils # 0.1 K/mm3 (0.0-0.4); Eosinophils % 1.5 % (0.1-12.0); Hematocrit 45.8 % (42.0-52.0); Hemoglobin 14.9 g/dL (14.1-18.0); Lymphocytes # 0.8 K/mm3 (0.7-4.5); Lymphocytes % 8.4 % (10-50); Mean Corpuscular HGB Conc 32.5 g/dL (31.8-35.4); Mean Corpuscular Hemoglobin 31.6 pg (27.0-31.2); Mean Corpuscular Volume 97.1 fl (80-94); Mean Platelet Volume 10.7 fl (7.4-10.4); Monocytes # 1.1 K/mm3 (0.1-1.0); Monocytes % 12.1 % (1.7-9.3); Neutrophils # 7.2 K/mm3 (1.8-7.8); Platelet Count 165 K/mm3 (142-424); Red Blood Count 4.72 M/mm3 (4.60-6.20); Red Cell Distribution Width 12.8 % (11.5-17.5); White Blood Count 9.4 K/mm3 (4.8-10.8)
--- NOTE | 2022-07-05 18:44 | HMH.EDGENADL ---
Discharge Plan Disposition Patient Disposition: Home, Self-Care Condition: Good Prescriptions Prescriptions: New oseltamivir [Tamiflu] 75 mg capsule 75 mg PO BID Qty: 10 0RF azithromycin [Zithromax Z-Nate] 250 mg tablet See Rx Instructions .ROUTE .COMPLEX Qty: 6 0RF Rx Instructions: For 250 mg dose pack: take 500 mg today (day 1), then 250 mg for 4 days (days 2-5) No Action pantoprazole 40 mg tablet,delayed release (DR/EC) 40 mg PO DAILY metoprolol tartrate 25 mg tablet 12.5 mg PO BID amlodipine [Norvasc] 10 mg tablet 10 mg PO DAILY Qty: 90 3RF atorvastatin 80 mg tablet 80 mg PO DAILY Qty: 90 3RF enalapril maleate 20 mg tablet See Rx Instructions .ROUTE .COMPLEX Qty: 60 4RF Dose Instruction: TAKE ONE TABLET BY MOUTH TWICE A DAY Rx Instructions: TAKE ONE TABLET BY MOUTH TWICE A DAY furosemide 20 mg tablet See Rx Instructions .ROUTE .COMPLEX Qty: 90 3RF Dose Instruction: TAKE 1 TABLET BY MOUTH ONCE DAILY FOR EDEMA Rx Instructions: TAKE 1 TABLET BY MOUTH ONCE DAILY FOR EDEMA spironolactone 25 mg tablet See Rx Instructions .ROUTE .COMPLEX Qty: 90 3RF Dose Instruction: TAKE ONE TABLET BY MOUTH EVERY DAY Rx Instructions: TAKE ONE TABLET BY MOUTH EVERY DAY metoprolol tartrate 25 mg tablet 12.5 mg PO DAILY Qty: 30 2RF diclofenac sodium 75 mg tablet,delayed release (DR/EC) 75 mg PO BID aspirin [Adult Low Dose Aspirin] 81 mg tablet,delayed release (DR/EC) 81 mg PO DAILY Referrals Follow up/Referrals: Hair Parish MD [Primary Care Provider] - See instructions Activity Restrictions/Add. Instructions Additional Instructions/Restrictions: Tamiflu as prescribed. ADDITIONAL INSTRUCTIONS FOR INFLUENZA (FLU): Rest, drink plenty of fluids. Tylenol or Ibuprofen for fever and/or aches and pains. Monitor your symptoms. IF YOU HAVE AN EMERGENCY WARNING SIGN (INCLUDING TROUBLE BREATHING), SEEK EMERGENCY MEDICAL CARE IMMEDIATELY. Influenze Isolation: People with influenza should isolate for 5 days. Then if they are asymptomatic (no symptoms) or their symptoms are resolving (without fever for 24 hours), you may end isolation. What to do: Stay in a separate room from other household members, if possible. Use a separate bathroom, if possible. Avoid contact with other members of the household and pets. Don?t share personal household items, like cups, towels, and utensils. Wear a mask when around other people if able. Clinical Impressions Clinical Impression: Influenza A Instructions Patient Instructions: DI for Influenza -- Adult Discharge ED Provider: Elias Tafoya General Adult HPI General Chief complaint: Nausea/Vomiting/Diarrhea Stated complaint: sent by Dr. Parish, vomiting,chills,luc Time Seen by Provider: 07/05/22 18:33 Mode of Arrival: Wheelchair Source of Information: Patient Limitations: No Limitations Description of Symptoms (Recalled from ER Triage Doc. by RN): c/o MURRY, no energy, sinus like symptoms and vomiting History of Present Illness HPI narrative: History obtained from patient and . He has been sick for couple days. Yesterday he was having coughing and sinus drainage. He saw Dr. Parish in the office. He says that he had a home COVID test that was negative. He says Dr. Parish thought he had a sinus infection and started him on amoxicillin. Today he has severe malaise. He has not been out of bed hardly all day. He has had a low-grade fever up to 100.8. He has continued cough, small amounts of sputum. He has rhinorrhea and postnasal drip. He had vomiting after he arrived to the emergency department. No diarrhea. No chest pain or shortness of breath. No known specific exposures. Related Data Home Medications Medication Instructions Recorded Confirmed diclofenac sodium 75 mg 75 mg PO BID 04/25/20 06/20/22 tablet,delayed release aspirin 81 mg tablet,delayed
--- NOTE | 2022-07-05 18:47 | XR_ITS ---
PROCEDURE INFORMATION: Exam: XR Chest Exam date and time: 07/05/2022 6:47 PM Age: 66 years old Clinical indication: Cough and fever; Prior surgery; Additional info: Cough fever TECHNIQUE: Imaging protocol: Radiologic exam of the chest. Views: 2 views. COMPARISON: [id number] XR cervical spine 5V 04/28/2018 4:49 PM FINDINGS: Lungs: In the left lung base there is atelectasis versus developing pneumonia. No consolidation. Pleural spaces: Unremarkable. No pleural effusion. No pneumothorax. Heart/Mediastinum: Midline sternotomy. No cardiomegaly. Bones/joints: Unremarkable. IMPRESSION: In the left lung base retrocardiac region there is developing atelectasis versus pneumonia. Correlate clinically.
[2022-07-05 18:54] LABS: Influenza A, PCR Detected (NotDetected)
[2022-07-05 19:01] VITALS: BP 149/72; PULSE 79; O2SAT 94
[2022-07-05 19:33] VITALS: BP 149/72; PULSE 79; RESP 18; TEMP 37.4; O2SAT 94
== END 2022-07-05 19:34 | disposition home or self-care (01) ==
PROVIDERS: Emergency Provider Emergency Medicine; PCP Internal Medicine
DX: J10.1 Influenza due to other identified influenza virus with other respiratory manifestations (principal); R00.1 Bradycardia, unspecified; R53.1 Weakness; R11.2 Nausea with vomiting, unspecified; R19.7 Diarrhea, unspecified; R50.9 Fever, unspecified; Z20.822 Contact with and (suspected) exposure to COVID-19; R05.9 Cough, unspecified; R53.81 Other malaise; N52.9 Male erectile dysfunction, unspecified; Z79.899 Other long term (current) drug therapy; Z95.1 Presence of aortocoronary bypass graft; Z79.82 Long term (current) use of aspirin
CPT/HCPCS: 71046; 80053; 82150; 83690; 85025; 99283; C9803; U0003; U0005

== ENCOUNTER → 2023-07-30 13:22 | Outpatient (CLI) | payer MEDICARE, SELFPAY ==
[2023-07-30 14:24] LABS: Basophils % 0.6 % (0.1-2.0); Eosinophils # 0.6 K/mm3 (0.0-0.4); Eosinophils % 7.6 % (0.1-12.0); Hemoglobin 14.1 g/dL (14.1-18.0); Lymphocytes # 1.7 K/mm3 (0.7-4.5); Lymphocytes % 22.9 % (10-50); Mean Corpuscular HGB Conc 32.8 g/dL (31.8-35.4); Mean Corpuscular Hemoglobin 32.3 pg (27.0-31.2); Mean Corpuscular Volume 98.5 fl (80-94); Monocytes # 0.8 K/mm3 (0.1-1.0); Monocytes % 10.2 % (1.7-9.3); Neutrophils # 4.3 K/mm3 (1.8-7.8); Neutrophils % 58.8 % (37.0-80.0); Platelet Count 296 K/mm3 (142-424); Red Blood Count 4.37 M/mm3 (4.60-6.20); Red Cell Distribution Width 12.8 % (11.5-17.5); White Blood Count 7.3 K/mm3 (4.8-10.8)
[2023-07-30 14:32] LABS: Albumin Level 4.2 g/dl (3.5-5.0); Albumin/Globulin Ratio 1.4 (1.1-1.8); Blood Urea Nitrogen 23 mg/dl (9-20); Calcium 8.8 mg/dl (8.4-10.2); Chloride 103 mmol/L (98-107); Estimated Glomerular Filt Rate 51 ml/min (>60); GFR (African American) 61 ML/MIN (>60); Globulin 3.1 g/dL (1.3-3.2); Glucose 80 mg/dl (74-100); HDL Cholesterol 24 mg/dl (40-60); Sodium 135 mmol/L (136-145); Total Protein,Serum 7.3 g/dl (6.3-8.2)
[2023-07-30 14:36] LABS: Alanine Aminotransferase 44 U/L (12-78); Alkaline Phosphatase 83 U/L (38-126); Aspartate Amino Transferase 44 U/L (17-59); Bilirubin,Total 0.6 mg/dl (0.2-1.3); Carbon Dioxide 26 mmol/L (22.0-30.0); Chol/HDL Ratio 4.5 (1-3.5); Cholesterol 107 mg/dl (140-200); Triglycerides 103 mg/dl (30-150); VLDL Cholesterol 21 mg/dL (0-40)
[2023-07-30 14:43] LABS: Direct LDL Cholesterol 64.71 mg/dL (100-129)
[2023-07-30 15:03] LABS: Prostate Specific Ag Screen 0.5 ng/ml (0.0-4.0)
== END ==
PROVIDERS: PCP Internal Medicine; Visit Provider Physician Assistant
DX: I11.9 Hypertensive heart disease without heart failure (principal); Z12.5 Encounter for screening for malignant neoplasm of prostate; E78.5 Hyperlipidemia, unspecified; N40.1 Benign prostatic hyperplasia with lower urinary tract symptoms; I25.10 Atherosclerotic heart disease of native coronary artery without angina pectoris; M15.0 Primary generalized (osteo)arthritis
CPT/HCPCS: 80053; 80061; 85025; G0103

== ENCOUNTER 2023-09-09 14:42 | Outpatient (CLI) | payer MEDICARE, SELFPAY ==
[2023-09-09 16:06] LABS: Anion Gap 16.9 mEq/L (5-15); Blood Urea Nitrogen 18 mg/dl (9-20); Calcium 9.4 mg/dl (8.4-10.2); Carbon Dioxide 24 mmol/L (22.0-30.0); Chloride 103 mmol/L (98-107); Estimated Glomerular Filt Rate 55 ml/min (>60); GFR (African American) 67 ML/MIN (>60); Glucose 83 mg/dl (74-100); Potassium 4.9 mmoL/L (3.5-5.1); Sodium 139 mmol/L (136-145)
== END 2023-09-09 23:59 ==
LOC: LAB.DROPOF 14:43
PROVIDERS: PCP Internal Medicine; Visit Provider Internal Medicine
DX: N28.9 Disorder of kidney and ureter, unspecified (principal); M54.50 Low back pain, unspecified; M47.27 Other spondylosis with radiculopathy, lumbosacral region; E66.9 Obesity, unspecified; Z68.41 Body mass index [BMI] 40.0-44.9, adult
CPT/HCPCS: 80048

== ENCOUNTER 2023-09-10 13:25 | Outpatient (CLI) | payer MEDICARE, SELFPAY ==
--- NOTE | 2023-09-10 13:30 | XR_ITS ---
FINAL REPORT CLINICAL HISTORY: LT HIP PAIN FINDINGS: Left hip with pelvis THREE VIEW HISTORY: Pain FINDINGS: Three views show no evidence of an acute, displaced fracture or dislocation of the visualized bony architecture. The joint spaces appear normal. IMPRESSION: Unremarkable exam. Reviewed, Interpreted and Dictated by Andrew Payan MD Transcribed by Jae Meyers Authenticated and [facility]
== END 2023-09-10 23:59 ==
LOC: RAD 13:27
PROVIDERS: PCP Internal Medicine; Visit Provider Internal Medicine
DX: M25.552 Pain in left hip (principal)
CPT/HCPCS: 73502

== ENCOUNTER 2023-10-14 11:41 | Outpatient (POV) | payer MEDICARE, SELFPAY ==
[2023-10-14 11:46] VITALS: BP 130/89; PULSE 62; RESP 18; BMI 34.2
--- NOTE | 2023-10-14 11:59 | A.OFFVIS_ITS ---
HPI Data of Consult Patient: new to practice Consult date: 10/14/23 Requesting Physician: Crystal Neville APRN Primary Care Provider: Hair Parish MD Consult Narrative Reason for consult: Low back pain, leg pain, hip pain History of present illness: Mr. Asher is a 68 year old male who presents today as a new patient. He is a referral from Dr. Parish's office. Today he rates his pain a 5 out of 10. Patient states his pain is all in his low back with radiating symptoms down into his left leg and it does go into his left hip. Patient states this has been going on for years and progressively worsened. He describes it as an aching, throbbing sensation that is worse with increased activity. Patient states he is perfectly fine when he is sitting however as soon as he goes to start standing or walking his pain increases. He does state the pain interferes with his ability to perform activities of daily living such as cooking and cleaning. Patient has tried injections in the past years ago and stated that they were 3 epidurals. He stated that he had upwards of 90 to 100% relief with the first 1 however as he did the second and third they became less and less effective. Patient has tried [id number] Tylenol along with diclofenac, heat and ice and topicals with minimal relief. Patient does state he has a history of kidney issues and was decreased from the twice a day dosage to 1 a day. Patient has been to the chiropractor in the past with minimal improvement. He is interested in any help we may be able to provide. Patient is not currently on any scheduled medications. He has been on tramadol and other pain medications in the past. His Harsha has been reviewed and is appropriate. CC: Crystal Neville APRN [facility] Disclaimer: The information contained in this section may have been updated after the patient was seen, as this information can be updated by other users. Medical History Erectile dysfunction Sinus bradycardia Surgical History History of left knee replacement Hx of CABG Family History (Updated 10/14/23 @ 11:47 by Andriy Dickson RN) Other No significant family history Social History Smoking Status: Never smoker alcohol intake: never substance use type: denies use current occupational status: other Travel in the last 8 weeks: None Review of Systems Review of Systems Review of systems:: pertinent systems reviewed and negative unless documented below Review of systems (narrative): Review of Systems: General: No recent weight changes, no fever, no sleep disturbances Respiratory: No cough, no shortness of air, no recurring pulmonary infections Cardiovascular/peripheral vascular: No chest pain, no palpitations, no edema, no shortness of breath Gastrointestinal: No new onset incontinence, normal bowel movements reported Genitourinary: No new onset incontinence Musculoskeletal: Low back pain, left hip pain, leg pain Psychiatric: [Normal mood/affect] Neurological: [Denies weakness in extremities], [denies balance issues] Meds Home Medications and Allergies Home Medications Medication Instructions Recorded Confirmed Type diclofenac sodium 75 mg 75 mg PO BID 04/25/20 07/29/23 History tablet,delayed release aspirin 81 mg tablet,delayed 81 mg PO DAILY 06/27/20 07/29/23 History release (Adult Low Dose Aspirin) pantoprazole 40 mg tablet,delayed 40 mg PO DAILY 06/20/22 07/29/23 History release amlodipine 10 mg tablet (Norvasc) 10 mg PO DAILY #90 tabs 12/06/22 07/29/23 Rx atorvastatin 80 mg tablet 80 mg PO DAILY #90 tabs 12/06/22 07/29/23 Rx furosemide 20 mg tablet See Rx Instructions .Route 12/06/22 07/29/23 Rx .COMPLEX #90 tabs spironolactone 25 mg tablet See Rx Instructions .Route 12/06/22 07/29/23 Rx .COMPLEX #90 tabs enalapril maleate 20 mg tablet See Rx Instructions .Route 05/13/23 07/29/23 Rx .COMPLEX #180 tabs New Prescriptions to Start Prescriptions: Allergies Allergy/AdvReac Type Severity Reaction Status Date / Time adhesive Allergy Unknown Rash Verified 07/29/23 09:35 adhesive tape Allergy Unknown Rash Verified 07/29/23 09:35 Objective Vital signs: Pulse Resp BP 62 18 130/89 10/14/23 11:46 10/14/23 11:46 10/14/23 11:46 Narrative: Physical Exam: General: Alert and oriented x3, no acute distress, pleasant and cooperative Lungs: Respirations even and unlabored, symmetrical chest expansion Eyes: PERRL Musculoskeletal: Flexion and extension of lumbar [spine] somewhat guarded secondary to pain, [antalgic gait noted] positive left leg raise with decreased sensation to light touch and decreased reflexes Neurological: Speech clear, no gross sensory deficit Additional findings Additional findings: FINDINGS: Left hip with pelvis THREE VIEW HISTORY: Pain FINDINGS: Three views show no evidence of an acute, displaced fracture or dislocation of the visualized bony architecture. The joint spaces appear normal. IMPRESSION: Unremarkable exam. Reviewed, Interpreted and Dictated by Andrew Payan MD Transcribed by Jae Meyers Authenticated and [facility] FINDINGS: Vertebrae: Left apex curvature centered at L3. Multilevel degenerative endplate changes are seen. These are worst at L2-L3 with some edema seen primarily to the right of midline. Posterior offset seen at L1-L2 and L2-L3 which is mild. Spinal cord: Normal signal. No cord compression. L1-L2: A large broad-based disc bulge is seen. Focal ligamental thickening is noted. Complete effacement of CSF is seen. A small amount of dorsal epidural fat remains. This constitutes a moderate to severe focal central canal stenosis. Facet arthropathy also noted. Mild left and moderate right L2-L3: A large broad-based disc bulge is seen. Focal ligamental thickening is noted. Complete effacement of CSF is seen. A small amount of dorsal epidural fat remains. This constitutes a moderate to severe focal central canal stenosis. Facet arthropathy also noted. Mild bilateral neural foraminal stenosis. L3-L4: Moderate broad-based disc bulge. Mild ligamental thickening. Moderate facet arthropathy. [id number] focal central canal stenosis. Mild bilateral neural foraminal stenosis. L4-L5: Moderate right asymmetric disc bulge. Significant effacement in the right ventral central canal. Moderate bilateral facet arthropathy. Moderate right asymmetric central canal stenosis. Moderate left and mild right neural foraminal stenosis. L5-S1: A moderate broad-based disc bulge. Superimposed moderate central protrusion. Disc material abuts transiting nerve roots. Mild facet arthropathy. Moderate left and mild right neural foraminal stenosis. Soft tissues: Unremarkable. IMPRESSION: Moderate to severe multilevel degenerative spondylopathy. Moderate to severe focal central canal stenoses are seen at L1-L2 and L2-L3. Assessment and Plan *Assessment and plan (1) Degenerative disc disease, lumbar: Status: Acute Category: Medical Code(s): M51.36 - Other intervertebral disc degeneration, lumbar region (2) Left leg pain: Status: Acute Category: Medical Code(s): M79.605 - Pain in left leg (3) Left hip pain: Status: Acute Category: Medical Code(s): M25.552 - Pain in left hip (4) Lumbar spinal stenosis: Status: Acute Qualifiers: Neurogenic claudication status: with neurogenic claudication Qualified Code(s): M48.062 - Spinal stenosis, lumbar region with neurogenic claudication Category: Medical Code(s): M48.061 - Spinal stenosis, lumbar region without neurogenic claudication (5) Lumbar radiculopathy: Status: Acute Category: Medical Code(s): M54.16 - Radiculopathy, lumbar region (6) Chronic pain syndrome: Status: Acute Category: Medical Code(s): G89.4 - Chronic pain syndrome Plan Patient is experiencing significant pain in his low back that does radiate down into his left hip and down his entire left leg. Patient did have limited range of motion of his lumbar spine along with a positive left leg raise and decreased sensation to light touch and reflexes during today's exam. I have discussed with the patient that he may benefit from a left transforaminal epidural steroid injection. Risk and benefits were discussed with the patient and he would like to proceed forward with this plan of care. Patient is not on any blood thinners. Patient denies present with a positive shopping cart sign and does have symptoms consistent with neurogenic claudication due to lumbar spinal stenosis. I have discussed with the patient in future he may be a beneficial candidate of a minimally invasive lumbar decompression procedure. Educational handouts were given at today's visit along with risk and benefits of this procedure. We will discuss this at future visits. I will order the patient a compounded cream. Patient will be scheduled for a left transforaminal epidural steroid injection L1-L2 and L2-L3 with epidurogram under fluoroscopy. Patient did have questions whether or not changing his anti-inflammatory to a different medication if this would help. I have counseled the patient that there are other medications such as meloxicam and Celebrex that could be possi ble options however due to his history of altered kidney function I would recommend that he talk to his primary care provider regarding these medications. Patient has been instructed to contact the clinic with any concerns before the next appointment. Dr. Ulloa has reviewed this note and agrees with this plan of care. This note was dictated using voice recognition software and make contain errors or omissions. Patient has been instructed to contact the clinic with any concerns before the next appointment. Dr. Ulloa has reviewed this note and agrees with this plan of care. This note was dictated using voice recognition software and make contain errors or omissions.
== END 2023-10-14 23:59 ==
PROVIDERS: PCP Internal Medicine; Visit Provider Nurse Practitioner Family
DX: M79.605 Pain in left leg; M25.552 Pain in left hip; M48.062 Spinal stenosis, lumbar region with neurogenic claudication; G89.4 Chronic pain syndrome; M51.16 Intervertebral disc disorders with radiculopathy, lumbar region
CPT/HCPCS: 99202; G0463

== ENCOUNTER 2023-12-03 12:00 | Outpatient (POV) | payer MEDICARE, SELFPAY | END 2023-12-03 23:59 | disposition home or self-care (01) | LOC: SC 12:01 | PROVIDERS: PCP Internal Medicine; Visit Provider Dermatology | DX: Z00.00 Encounter for general adult medical examination without abnormal findings (principal) ==

== ENCOUNTER 2024-09-04 08:49 | Outpatient (CLI) | payer MEDICARE, BC, SELFPAY ==
--- NOTE | 2024-09-04 08:53 | CA_ITS ---
APPROVED REPORT EXAM: Comprehensive 2D, Doppler, and color-flow Echocardiogram Director Post: OBINNA Mcclain, RVS Ht: 6 ft 3 in Wt: 315lbs BSA: 2.66 BP: 138/75 mmHg Indications: CAD, CABG, CKD, HTN Echo Enhancing Agent Comments: TDS: limited windows due to patient body habitus 2D Dimensions Left Atrium 4.29 cm M: 3.0 - 4.0 LA Volume 64.30 mL LA Volume Index 24.038181 mL/m2 (M/F) 16-34 M-Mode Dimensions RVDd 3.90 cm (0.9-2.6) LA Diam 4.14 cm (1.9-4.0) LVDd 5.77 cm (3.5-5.7) LVDs 4.18 cm (3.5-5.7) IVSd 1.13 cm (0.6-1.1) PWd 1.13 cm (0.6-1.1) EF (Teich) 52.80% EPSs 0.24 cm FS 27.60% EDV (Teich) 164.60 mL TAPSE 1.24 (<1.7) ESV (Teich) 77.70 mL LV Diastology E Decel Time 247 (160-240 msec) E/A Ratio 1.07 MED A' 11.00 cm/s LAT A' 10.00 cm/s Aortic Valve AMBROSIO Index 0.90 cm2/m2 AoV Peak Dale. 125.0 (50-130 cm/s) AO Peak GR. 6.20 mmHg AO Mean GR. 3.20 (<5 mmHg) AO VTI 28.4 (18-25 cm) AMBROSIO (VTI) 2.45 (2.5-4.5 cm2) Mitral Valve MV A Velocity 57.0 (40-130 cm/s) E/A Ratio 1.07 Tricuspid Valve TR P. Velocity 220.00 cm/s RAP Estimate 10.00 mmHg RVSP 29.40 mmHg Left Ventricle The left ventricle is normal size. The left ventricular systolic function is normal. The left ventricular ejection fraction is within the normal range. There is normal left ventricular wall thickness. There is normal LV segmental wall motion. The left ventricular diastolic function is normal. LVEF is 55%. Right Ventricle Right ventricle is mildly dilated. Right ventricle is mildly hypokinetic. Atria The left atrium size is normal. The right atrium size is normal. There is no Doppler evidence of interatrial shunt. Aortic Valve The aortic valve is mildly thickened. Trace aortic regurgitation. There is no aortic valvular stenosis. Mitral Valve The mitral valve is mildly thickened. No evidence of mitral valve stenosis. Mild mitral regurgitation. Tricuspid Valve Tricuspid valve is grossly normal in structure and function. Mild tricuspid regurgitation. RVSP is 20-25 mmHg. Pulmonic Valve The pulmonary valve is normal in structure. Trace pulmonic regurgitation. Great Vessels The aortic root is normal in size. The ascending aorta is not well-visualized. IVC is normal in size and collapses >50% with inspiration. Pericardium There is no pericardial effusion. Other Information Study Quality: Fair Conclusion Normal LV systolic function. Mild RV dilation with mild reduction in RV function. Mild MR, mild TR. Electronically signed by : Negra Wadsworth MD 09/12/2024 23:34:24
--- NOTE | 2024-09-04 08:53 | CA_ITS ---
FINAL REPORT TECHNIQUE: Ultrasound images of the kidneys were obtained. Duplex Doppler of the renal arteries, RAR and RI also obtained. Spectral analysis was performed. CLINICAL HISTORY: CAD, CKD, HTN, Obesity COMPARISON: None FINDINGS: Limited images of the liver parenchyma demonstrate normal echogenicity. The right kidney measures 11.8 cm in length. It is normal echogenicity. There is no hydronephrosis. RI is 0.68-0.72. The renal artery/aortic ratio: 1.3. The left kidney measures 12.4 cm in length. It is normal echogenicity. There is no hydronephrosis. RI is 0.67-0.73. The renal artery/aortic ratio: 1.1. Note is made of a 2.8 cm left renal cyst. IMPRESSION: Normal renal ultrasound. Normal RI bilaterally. Reviewed, Interpreted and Dictated by Tate Hutchinson MD Transcribed by Joy Trujillo Authenticated and [facility]
[2024-09-04 09:22] LABS: Basophils # 0.1 K/mm3 (0-0.2); Eosinophils # 0.5 K/mm3 (0.0-0.4); Hematocrit 42.9 % (42.0-52.0); Hemoglobin 14.3 g/dL (14.1-18.0); Lymphocytes # 1.7 K/mm3 (0.7-4.5); Lymphocytes % 22.4 % (10-50); Mean Corpuscular HGB Conc 33.3 g/dL (31.8-35.4); Mean Corpuscular Hemoglobin 32.1 pg (27.0-31.2); Mean Corpuscular Volume 96.2 fl (80-94); Mean Platelet Volume 9.6 fl (7.4-10.4); Monocytes % 13.1 % (1.7-9.3); Neutrophils # 4.3 K/mm3 (1.8-7.8); Neutrophils % 56.2 % (37.0-80.0); Platelet Count 267 K/mm3 (142-424); Red Blood Count 4.46 M/mm3 (4.60-6.20); Red Cell Distribution Width 11.9 % (11.5-17.5); White Blood Count 7.7 K/mm3 (4.8-10.8)
[2024-09-04 10:13] LABS: Free T4 (Free Thyroxine) 1.15 ng/dl (0.78-2.19)
[2024-09-04 13:46] LABS: Alanine Aminotransferase 39 U/L (12-78); Albumin Level 4.3 g/dl (3.5-5.0); Alkaline Phosphatase 60 U/L (38-126); Anion Gap 15.9 mEq/L (5-15); Aspartate Amino Transferase 44 U/L (17-59); Bilirubin,Direct 0.2 mg/dl (0.0-0.4); Bilirubin,Indirect 0.4 mg/dL (0.0-0.9); Bilirubin,Total 0.6 mg/dl (0.2-1.3); Bilirubin,Unconjugated 0.4 mg/dL (0.0-1.1); Blood Urea Nitrogen 21 mg/dl (9-20); Calcium 9.5 mg/dl (8.4-10.2); Carbon Dioxide 23 mmol/L (22.0-30.0); Chloride 106 mmol/L (98-107); Cholesterol 97 mg/dl (140-200); Estimated Glomerular Filt Rate 67 ml/min (>60); GFR (African American) 81 ML/MIN (>60); Glucose 97 mg/dl (74-100); HDL Cholesterol 24 mg/dl (40-60); Potassium 4.9 mmoL/L (3.5-5.1); Sodium 140 mmol/L (136-145); Triglycerides 71 mg/dl (30-150); VLDL Cholesterol 14 mg/dL (0-40)
[2024-09-04 14:17] LABS: Thyroid Stimulating Hormone 1.03 uIU/mL (0.465-4.68)
== END 2024-09-04 23:59 | disposition home or self-care (01) ==
LOC: RT 08:51
PROVIDERS: PCP Internal Medicine; Visit Provider Physician Assistant
DX: I36.1 Nonrheumatic tricuspid (valve) insufficiency (principal); I51.7 Cardiomegaly; I34.0 Nonrheumatic mitral (valve) insufficiency; N18.9 Chronic kidney disease, unspecified; E66.01 Morbid (severe) obesity due to excess calories; Z68.41 Body mass index [BMI] 40.0-44.9, adult; E78.5 Hyperlipidemia, unspecified; I25.10 Atherosclerotic heart disease of native coronary artery without angina pectoris; Z95.1 Presence of aortocoronary bypass graft; R94.30 Abnormal result of cardiovascular function study, unspecified; R06.00 Dyspnea, unspecified; R07.89 Other chest pain; R94.31 Abnormal electrocardiogram [ECG] [EKG]; Z82.49 Family history of ischemic heart disease and other diseases of the circulatory system
CPT/HCPCS: 36415; 80048; 80061; 80076; 84439; 84443; 85025; 93306; 93976

== ENCOUNTER 2025-03-31 06:58 | Outpatient (CLI) | payer MEDICARE, BC, SELFPAY ==
--- OUTSIDE RECORDS SUMMARY | 2025-03-31 07:02 | XMS_ITS | Clinical Summary ---
Author Organization Healthcare Address [address] [place] [address] Care Team Providers Care Timber Inspector Name Role Phone Hair Parish MD Primary Care Provider [phone] Medications diclofenac (Voltaren) 75 MG EC tablet Take 1 tablet twice daily 06/01/2020 Active Immunizations Immunization Administration Dates Next Due Influenza, injectable, quadrivalent, preservativ e free 05/13/2020 Pneumococcal Polysaccharide PPV23 05/13/2020 Family History Medical History Relation Name Comments Conversions - Other Father FH: CABG (coronary artery bypass surgery) Relation Name Status Comments Father Social History Tobacco Use Types Packs/Day Years Used Date Smoking Tobacco: Never Sex and Gender Information Value Date Recorded Sex Assigned at Not on file Legal Sex Male 7:57 PM EDT Gender Identity Not on file Sexual Orientation Not on file Last Filed Vital Signs Vital Sign Reading Time Taken Comments Blood Pressure 171/95 06/29/2020 9:00 AM EST Pulse 64 06/29/2020 9:00 AM EST Temperature 36.8 C (98.3 F) 06/29/2020 9:00 AM EST Respiratory Rate - - Oxygen Saturation - - Inhaled Oxygen Concentration - - Weight 137 kg (302 lb 9.3 oz) 06/29/2020 9:00 AM EST Height 190.5 cm (6' 3 ) 06/29/2020 9:00 AM EST Body Mass Index 37.82 06/29/2020 9:00 AM EST Plan of Treatment Health Maintenance Due Date Last Done Comments [facility]-Depression Screening 1956 [facility]-/Child/Adol SDOH Screenings 1955 [facility]- SDOH Screenings 1974 [facility]-Adult SDOH Screenings 1974 [facility]-DTaP,Tdap,and Td Vaccine s (1 - Tdap) 1975 CT Colonography 2001 Colonoscopy 2001 FIT-DNA 2001 FIT 2001 FOBT 2001 Sigmoidoscopy 2001 [facility]-Colorectal Cancer Screening 2001 [facility]-Zoster Vaccines (1 of 2) 2006 [facility]-Pneumococcal Vaccine: 50 + Years (2 of 2 - PCV) 05/13/2021 05/13/2020 [id number] Vaccine (1 - 20 24-25 season) 2024 [facility]-Influenza Vaccine (#1) 2025 05/13/2020 [facility]-RSV Vaccine: 60+ Years o r (1 - 1-dose 75+ series) 2031 HPV Vaccines Aged Out No longer eligi ble based on patient's age to complete this topic [facility]-HIB Vaccines Aged Out No longer e ligible based on patient's age to complete this topic [facility]-Hepatitis A Vaccines Aged Out No longer eligible based on patient's age to complete this topic [facility]-IPV Vaccines Aged Out No longer e ligible based on patient's age to complete this topic [facility]-Rotavirus Vaccines Aged Out No lo nger eligible based on patient's age to complete this topic Care Teams Timber Inspector Relationship Specialty Start Date End Date Hair Parish MD [address] [place] [address] [address] [place] [address] PCP - General 12/23/20
--- OUTSIDE RECORDS SUMMARY | 2025-03-31 07:02 | XMS_ITS | Clinical Summary ---
Author Organization [facility] Address [address] [place] [address] Care Team Providers Care Electrical Engineering Draftsperson Name Role Phone Hair Parish MD Primary Care Provider [phone] Allergies Active Allergy Reactions Criticality Noted Date Comments Bacitracin-Polymyxin B Rash Low 03/23/2022 Wound Dressing Adhesive Rash Low 03/23/2022 Medications diclofenac (VOLTAREN) 75 MG EC tablet diclofenac sodium 75 mg tablet,delayed release Active sildenafil (VIAGRA) 100 MG tablet 2 Active pantoprazole (PROTONIX) 40 MG EC tablet 2 Active atorvastatin (LIPITOR) 80 MG tablet 2 Active enalapril (VASOTEC) 20 MG tablet 2 Active spironolactone (ALDACTONE) 25 MG tablet 2 Active metoprolol tartrate (LOPRESSOR) 25 MG tablet 2 Active amLODIPine (NORVASC) 10 MG tablet 2 Active furosemide (LASIX) 20 MG tablet 2 Active tadalafil (CIALIS) 10 MG tablet Take 10 mg by mouth Daily As Needed for Erectile Dysfunction. Active Active Problems No known active problems Family History Medical History Relation Name Comments Dementia Father Heart disease Father Hypertension Father Relation Name Status Comments Father Social History Tobacco Use Types Packs/Day Years Used Date Smoking Tobacco: Never Smokeless Tobacco: Never Alcohol Use Standard Drinks/Week Comments Never 0 (1 standard drink = 0.6 oz pur e alcohol) Abuse Screen Answer Date Recorded Unsafe at Home or Work/School Not on file 10 /04/2023 Feels Threatened by Someone? Not on file 04/2023 Does Anyone Keep You from Co ntacting Others or Doint Things Outside the Home? Not on file 05/20/2023 Physical Sign of Abuse Present Not on file 1 Housing Stability Answer Date Recorded Current Living Arrangements Not on file 04/2023 Potentially Unsafe Housing Conditions Not on sreekanth e 05/20/2023 Family and Community Support Answer Tu e Recorded Help with Day-to-Day Activities Not on file 05/20/2023 Lonely or Isolated Not on file 05/20/2023 Employment Answer Date Recorded Do you want help finding or keeping work or a yudi b? Not on file 05/20/2023 Disabilities Answer Date Recorded Concentrating, Remembering, or Making Decisions Difficulty Not on file 05/20/2023 Doing Errands Independently Difficulty Not on fi le 05/20/2023 Education Answer Date Recorded Help with school or training? Not on file Preferred Language Not on file 05/20/2023 Sex and Gender Information Value Date Recorded Sex Assigned at Not on file Legal Sex Male 10:15 AM EDT Gender Identity Not on file Sexual Orientation Not on file Last Filed Vital Signs Vital Sign Reading Time Taken Comments Blood Pressure - - Pulse - - Temperature - - Respiratory Rate - - Oxygen Saturation - - Inhaled Oxygen Concentration - - Weight 144 kg (316 lb 12.8 oz) 03/23/2022 11:56 AM EDT Height 190.5 cm (6' 3 ) 03/23/2022 11:56 AM EDT Body Mass Index 39.6 03/23/2022 11:56 AM EDT Plan of Treatment Health Maintenance Due Date Last Done Comments COLOGUARD 2001 COLON CANCER SCREENING 5 YEA R SIGMOIDOSCOPY 2001 COLONOSCOPY 2001 COL[address]AL CANCER SCREENING 2001 CT COLONOGRAPHY 2001 FECAL OCCULT BLOOD TEST 2001 FIT Testing (1 year) 2001 ZOSTER VACCINE (1 of 2) 2006 TDAP/TD VACCINES (2 - Tdap) 10/13/2006 10/13/1996 Pneumococcal Vaccine 50+ (2 of 2 - PCV) 05/13/2021 05/13/2020 AAA SCREEN ONCE 2021 ANNUAL PHYSICAL 03/23/2022 HEPATITIS C SCREENING 03/23/2022 COVID-19 Vaccine (2023-2 5 season) 2024 03/21/2022, 06/07/2021, 11/10/2020, Additional history exists INFLUENZA VACCINE 05/12/2025 05/13/2020 Insurance [facility] P[facility] Care Teams Electrical Engineering Draftsperson Relationship Specialty Start Date End Date Hair Parish MD [address] [facility] [address] [place] [id number] PCP - General Internal Medicine 02/19/22
[2025-03-31 07:28] LABS: Hematocrit 42.4 % (42.0-52.0); Hemoglobin 14.5 g/dL (14.1-18.0); Immature Granulocytes % 0.4 %; Mean Corpuscular HGB Conc 34.2 g/dL (31.8-35.4); Mean Corpuscular Hemoglobin 32.9 pg (27.0-31.2); Mean Corpuscular Volume 96.1 fl (80-94); Nucleated Red Blood Cells % 0 %; Platelet Count 285 K/mm3 (142-424); Red Blood Count 4.41 M/mm3 (4.60-6.20); Red Cell Distribution Width-SD 43.0 fL; White Blood Count 8.1 K/mm3 (4.8-10.8)
[2025-03-31 08:09] LABS: Albumin Level 4.4 g/dl (3.5-5.0); Chloride 109 mmol/L (98-107); Potassium 4.9 mmoL/L (3.5-5.1); Sodium 139 mmol/L (136-145)
[2025-03-31 08:11] LABS: Blood Urea Nitrogen 23 mg/dl (9-20); Creatinine,Serum 1.00 mg/dl (0.66-1.25); Estimated Glomerular Filt Rate 74 ml/min (>60); GFR (African American) 90 ML/MIN (>60)
[2025-03-31 08:12] LABS: Alanine Aminotransferase 40 U/L (12-78); Albumin/Globulin Ratio 1.5 (1.1-1.8); Alkaline Phosphatase 70 U/L (38-126); Anion Gap 13.9 mEq/L (5-15); Aspartate Amino Transferase 48 U/L (17-59); Bilirubin,Total 0.8 mg/dl (0.2-1.3); Calcium 9.6 mg/dl (8.4-10.2); Carbon Dioxide 21 mmol/L (22.0-30.0); Cholesterol 110 mg/dl (140-200); Globulin 2.9 g/dL (1.3-3.2); Glucose 98 mg/dl (74-100); Total Protein,Serum 7.3 g/dl (6.3-8.2); Triglycerides 117 mg/dl (30-150)
[2025-03-31 08:13] LABS: HDL Cholesterol 29 mg/dl (40-60)
== END 2025-03-31 23:59 | disposition home or self-care (01) ==
LOC: LAB 07:00
PROVIDERS: PCP Internal Medicine; Visit Provider Internal Medicine
DX: E78.5 Hyperlipidemia, unspecified (principal); I12.9 Hypertensive chronic kidney disease with stage 1 through stage 4 chronic kidney disease, or unspecified chronic kidney disease; N18.9 Chronic kidney disease, unspecified; E66.01 Morbid (severe) obesity due to excess calories; Z12.5 Encounter for screening for malignant neoplasm of prostate
CPT/HCPCS: 36415; 80053; 80061; 85025; G0103